=== PATIENT | male | born 1955 | race Caucasian/White ===

== ENCOUNTER → 2016-05-10 | Outpatient (CLI) | payer MEDICAID ==
[~2016-05-10] MED LIST: AMLO10TA; LOPR50TA; No Historical Meds
--- NOTE | 2016-05-10 13:03 | REP ---
CT study of the abdomen and pelvis without IV or oral contrast: History: Kidney calculus. Comparison CT study is from June 02, 2015. Previous studies have shown polycystic kidney disease. The patient is status post right renal transplant. 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 The lung bases show minimal pleuroparenchymal fibrosis. There are innumerable hepatic cysts distributed throughout the liver ranging in size up to 3.6 cm. These are unchanged. The [place] kidneys are bilaterally enlarged and replaced by innumerable cysts as well. There are multifocal cyst wall calcifications seen. There is a calcific density at the renal medullary level in the right kidney. I cannot exclude intrarenal nephrolithiasis. No hydronephrosis is seen in either [place] kidney. The right renal transplant shows no hydronephrosis. No calculus is seen within the transplanted kidney. There is no evidence of ascites. The gallbladder and the pancreas are unremarkable. No adrenal lesion is seen on either side. Spleen is unremarkable. Small and large intestinal bowel loops are normal in appearance. Urinary bladder, prostate and seminal vesicles are intact. Bone window settings show no bony destructive lesion. Impression: Polycystic kidney disease. Right renal transplant. Question right [place] kidney intrarenal nephrolithiasis. No hydronephrosis. No acute abnormality noted. Signed by Silvino Calle MD 05/10/2016 03:21 P
== END ==
LOC: M RAD 11:01
PROVIDERS: ATTEND Internal Medicine Nephrology
DX: Q61.3 Polycystic kidney, unspecified (principal); Z94.0 Kidney transplant status

== ENCOUNTER → 2016-09-15 | Outpatient (REF) | payer MEDICAID, OTHER ==
[2016-09-15 13:41] LABS: MICROSCOPIC INDICATED? MAN YES (NO)
[2016-09-15 13:42] LABS: BACTERIA, URINE MOD AMOUNT; HYALINE CAST, URINE NONE SEEN /lpf (0-1); MICROSCOPIC EXAM PERFORMED; RBC, URINE TNTC /hpf (0-3); SQUAMOUS EPITHELIAL CELL URINE NONE SEEN /hpf (SMALL AMT)
== END ==
LOC: M LAB REF 12:38
PROVIDERS: ATTEND Internal Medicine Medical Oncology
DX: D75.1 Secondary polycythemia (principal)

== ENCOUNTER → 2017-02-03 | Outpatient (REF) | payer OTHER | LOC: M SFHCPLAZ 14:05 | PROVIDERS: ATTEND Physician Assistant Medical | DX: Z12.5 Encounter for screening for malignant neoplasm of prostate (principal) ==

== ENCOUNTER → 2017-08-01 | Outpatient (REF) | payer OTHER ==
[2017-08-01 16:19] LABS: TOTAL 25(OH) VITAMIN D 26.4 NG/ML (30.0-100.0)
[2017-08-01 16:33] LABS: ALBUMIN 3.8 GM/DL (3.2-5.2); ALBUMIN/GLOBULIN RATIO 0.95 (1.00-1.93); ALKALINE PHOSPHATASE 86 U/L (45-117); ALT/SGPT 15 U/L (12-78); ANION GAP 6 MEQ/L (8-16); AST/SGOT 19 U/L (7-37); BILIRUBIN,TOTAL 0.5 MG/DL (0.2-1.0); BLOOD UREA NITROGEN 22 MG/DL (7-18); C REACTIVE PROTEIN QUANTITATIV < 0.30 MG/DL (0.00-0.30); CALCIUM LEVEL 8.7 MG/DL (8.8-10.2); CARBON DIOXIDE LEVEL 24 MEQ/L (21-32); CHLORIDE LEVEL 110 MEQ/L (98-107); CHOLESTEROL LEVEL 178 MG/DL (<200); CHOLESTEROL RISK RATIO 3.708 (<5); CPK CREATINE PHOSPHOKINASE 118 U/L (39-308); FREE T4 0.85 NG/DL (0.76-1.46); GLOMERULAR FILTRATION RATE > 60.0 (>49); GLUCOSE, FASTING 82 MG/DL (70-100); HDL CHOLESTEROL 48 MG/DL (>40); LDL CHOLESTEROL 105.8 MG/DL (<100); NON-HDL-C 130 MG/DL; POTASSIUM SERUM 4.6 MEQ/L (3.5-5.1); SODIUM LEVEL 140 MEQ/L (136-145); THYROID STIMULATING HORMONE 0.904 uIU/ML (0.358-3.740); TOTAL PROTEIN 7.8 GM/DL (6.4-8.2); TRIGLYCERIDES LEVEL 121 MG/DL (<150)
== END ==
LOC: M SFHCPLAZ 12:09
DX: E78.2 Mixed hyperlipidemia (principal); Z12.5 Encounter for screening for malignant neoplasm of prostate; Q61.3 Polycystic kidney, unspecified
CPT/HCPCS: 82550

== ENCOUNTER → 2018-01-16 | Outpatient (REF) | payer OTHER ==
[2018-01-16 18:37] LABS: CHOLESTEROL LEVEL 187 MG/DL (<200); CHOLESTEROL RISK RATIO 3.339 (<5); HDL CHOLESTEROL 56 MG/DL (>40); LDL CHOLESTEROL 111 MG/DL (<100); NON-HDL-C 131 MG/DL; TRIGLYCERIDES LEVEL 98 MG/DL (<150)
[2018-01-19 14:13] LABS: FK 506 (TACROLIMUS) LABCORP 3.3 ng/mL (2.0-20.0)
== END ==
LOC: M LAB REF 17:19
DX: Z48.22 Encounter for aftercare following kidney transplant (principal); Z94.0 Kidney transplant status; E78.2 Mixed hyperlipidemia
CPT/HCPCS: 80061

== ENCOUNTER 2018-02-06 07:38 | Day surgery (SDC) | payer OTHER ==
[~2018-02-06 07:38] MED LIST changes: +ACETYLCYSTEINE 20% 30 ML VIAL As Ordered; -AMLO10TA; -LOPR50TA; -No Historical Meds
[2018-02-06] MEDS: NS 1,000 ML IV (08:15)
[2018-02-06] MEDS ORDERED: PROPOFOL 200 MG/20 ML VIAL As Ordered (09:10)
== END 2018-02-06 09:34 | disposition home or self-care (01) ==
LOC: M OPP 07:38
DX: Z12.11 Encounter for screening for malignant neoplasm of colon (principal); K57.30 Diverticulosis of large intestine without perforation or abscess without bleeding; K64.8 Other hemorrhoids
CPT/HCPCS: 45378

== ENCOUNTER → 2018-07-25 | Outpatient (REF) | payer MEDICARE ==
[~2018-07-25] MED LIST changes: -ACETYLCYSTEINE 20% 30 ML VIAL As Ordered; +AMLO10TA; +AMLO10TA5 PO; +ASPI-255 PO; +CALC1CAP31 PO; +LOPR50TA; +LOSA100T50 PO; +METO1TAB87 PO; +MYCO250C PO; +No Historical Meds; +PRAV10TA3 PO; +TACR1CAP3 PO
[2018-07-25 12:19] LABS: BASO # 0.1 10^3/uL (0.0-0.2); BASO % 0.8 % (0.0-1.0); EOS # 0.3 10^3/uL (0.0-0.50); EOS % 3.6 % (0.0-3.0); HEMATOCRIT 55.8 % (42.0-52.0); LYMPH # 1.4 10^3/uL (1.5-4.5); LYMPH % 16.5 % (24.0-44.0); MEAN CORPUSCULAR HEMOGLOBIN 29.6 pg (27.0-33.0); MEAN CORPUSCULAR HGB CONC 32.3 g/dl (32.0-36.5); MEAN CORPUSCULAR VOLUME 91.6 fl (80.0-96.0); MONO # 0.9 10^3/uL (0.0-0.8); MONO % 10.1 % (0.0-5.0); NEUTROPHILS # 5.9 10^3/uL (1.8-7.7); NEUTROPHILS % 68.8 % (36.0-66.0); PLATELET COUNT, AUTOMATED 187 10^3/uL (150-450); RED BLOOD COUNT 6.09 10^6/uL (4.30-6.10); WHITE BLOOD COUNT 8.6 10^3/uL (4.0-10.0)
[2018-07-25 12:51] LABS: ALBUMIN 3.6 GM/DL (3.2-5.2); ALT/SGPT 15 U/L (12-78); BILIRUBIN,TOTAL 0.6 MG/DL (0.2-1.0); BLOOD UREA NITROGEN 19 MG/DL (7-18); C REACTIVE PROTEIN QUANTITATIV 0.66 MG/DL (0.00-0.30); CALCIUM LEVEL 9.1 MG/DL (8.8-10.2); CARBON DIOXIDE LEVEL 27 MEQ/L (21-32); CHLORIDE LEVEL 106 MEQ/L (98-107); CHOLESTEROL LEVEL 184 MG/DL (<200); CHOLESTEROL RISK RATIO 3.471 (<5); CPK CREATINE PHOSPHOKINASE 113 U/L (39-308); CREATININE FOR GFR 1.18 MG/DL (0.70-1.30); GLOMERULAR FILTRATION RATE > 60.0 (>49); GLUCOSE, FASTING 85 MG/DL (70-100); HDL CHOLESTEROL 53 MG/DL (>40); LDL CHOLESTEROL 109 MG/DL (<100); NON-HDL-C 131 MG/DL; POTASSIUM SERUM 4.9 MEQ/L (3.5-5.1); SODIUM LEVEL 139 MEQ/L (136-145); TRIGLYCERIDES LEVEL 110 MG/DL (<150)
== END ==
LOC: M SFHCPLAZ 09:40
PROVIDERS: ATTEND Physician Assistant Medical
DX: Q61.3 Polycystic kidney, unspecified (principal); E78.2 Mixed hyperlipidemia; I10 Essential (primary) hypertension; Z12.5 Encounter for screening for malignant neoplasm of prostate
CPT/HCPCS: 36415; 80053; 80061; 82550; 82747; 85025; 86140; 90670; G0009; G0103; G0463

== ENCOUNTER → 2019-06-25 | Outpatient (REF) | payer MEDICARE, MEDICAID | LOC: M LAB REF 17:30 | PROVIDERS: ATTEND Internal Medicine Nephrology | DX: Z94.0 Kidney transplant status (principal); Z48.22 Encounter for aftercare following kidney transplant ==

== ENCOUNTER → 2019-07-03 | Outpatient (REF) | payer MEDICARE ==
[2019-07-03 14:46] LABS: BASO # 0.1 10^3/uL (0.0-0.2); BASO % 0.8 % (0.0-1.0); EOS # 0.2 10^3/uL (0.0-0.5); EOS % 3.3 % (0.0-3.0); LYMPH # 1.7 10^3/uL (1.5-5.0); LYMPH % 27.1 % (24.0-44.0); MEAN CORPUSCULAR HEMOGLOBIN 30.3 pg (27.0-33.0); MEAN CORPUSCULAR HGB CONC 33.2 g/dl (32.0-36.5); MONO # 0.7 10^3/uL (0.0-0.8); MONO % 11.7 % (0.0-5.0); NEUTROPHILS # 3.5 10^3/uL (1.5-8.5); NEUTROPHILS % 56.8 % (36.0-66.0); PLATELET COUNT, AUTOMATED 209 10^3/uL (150-450); WHITE BLOOD COUNT 6.1 10^3/uL (4.0-10.0)
[2019-07-03 14:50] LABS: HEMOGLOBIN 18.6 g/dl (13.5-17.5); MEAN CORPUSCULAR VOLUME 91.2 fl (80.0-96.0); RED BLOOD COUNT 6.14 10^6/uL (4.30-6.10)
[2019-07-03 15:21] LABS: ALT/SGPT 23 U/L (12-78); BILIRUBIN,TOTAL 0.6 MG/DL (0.2-1.0); BLOOD UREA NITROGEN 22 MG/DL (7-18); CALCIUM LEVEL 9.3 MG/DL (8.8-10.2); CARBON DIOXIDE LEVEL 27 MEQ/L (21-32); CHLORIDE LEVEL 106 MEQ/L (98-107); CHOLESTEROL LEVEL 176 MG/DL (<200); CHOLESTEROL RISK RATIO 3.259 (<5); CPK CREATINE PHOSPHOKINASE 126 U/L (39-308); CREATININE FOR GFR 1.21 MG/DL (0.70-1.30); FREE T4 1.07 NG/DL (0.76-1.46); GLOMERULAR FILTRATION RATE > 60.0 (>49); GLUCOSE, FASTING 80 MG/DL (70-100); HDL CHOLESTEROL 54 MG/DL (>40); LDL CHOLESTEROL 96 MG/DL (<100); NON-HDL-C 122 MG/DL; SODIUM LEVEL 137 MEQ/L (136-145); TOTAL PROTEIN 8.1 GM/DL (6.4-8.2); TRIGLYCERIDES LEVEL 132 MG/DL (<150)
== END ==
LOC: M SFHCPLAZ 12:20
PROVIDERS: ATTEND Physician Assistant Medical
DX: E78.2 Mixed hyperlipidemia (principal); I10 Essential (primary) hypertension; Z12.5 Encounter for screening for malignant neoplasm of prostate
CPT/HCPCS: 36415; 80053; 80061; 82550; 84439; 84443; 85025; G0103

== ENCOUNTER → 2020-01-02 | Outpatient (REF) | payer MEDICARE ==
[~2020-01-02] MED LIST changes: -AMLO10TA5 PO; +AMLO1TAB25 PO
[2020-01-02 13:23] LABS: BASO % 0.5 % (0.0-1.0); EOS # 0.2 10^3/uL (0.0-0.5); EOS % 2.7 % (0.0-3.0); HEMATOCRIT 55.4 % (42.0-52.0); HEMOGLOBIN 17.7 g/dl (13.5-17.5); LYMPH # 1.4 10^3/uL (1.5-5.0); LYMPH % 19.5 % (24.0-44.0); MEAN CORPUSCULAR HEMOGLOBIN 30.5 pg (27.0-33.0); MEAN CORPUSCULAR HGB CONC 31.9 g/dl (32.0-36.5); MEAN CORPUSCULAR VOLUME 95.4 fl (80.0-96.0); MONO % 14.1 % (0.0-5.0); NEUTROPHILS # 4.6 10^3/uL (1.5-8.5); NEUTROPHILS % 62.9 % (36.0-66.0); PLATELET COUNT, AUTOMATED 197 10^3/uL (150-450); RED BLOOD COUNT 5.81 10^6/uL (4.30-6.10); WHITE BLOOD COUNT 7.3 10^3/uL (4.0-10.0)
[2020-01-02 13:39] LABS: HEMOGLOBIN A1c 5.2 %
[2020-01-02 13:54] LABS: BILIRUBIN,TOTAL 0.7 MG/DL (0.2-1.0); CALCIUM LEVEL 9.5 MG/DL (8.8-10.2); CREATININE FOR GFR 1.51 MG/DL (0.70-1.30); GLOMERULAR FILTRATION RATE 49.5 (>49); POTASSIUM SERUM 4.8 MEQ/L (3.5-5.1); TOTAL PROTEIN 7.9 GM/DL (6.4-8.2); URIC ACID 8.2 MG/DL (3.5-7.2)
[2020-01-02 14:01] LABS: PTH INTACT 93.9 PG/ML (18.5-88.0)
[2020-01-03 09:09] LABS: ERYTHROPOIETIN 18.1 mIU/mL (2.6-18.5); INSULIN LEVEL 9.2 uIU/mL (2.6-24.9)
== END ==
LOC: M SFHCPLAZ 09:55
PROVIDERS: ATTEND Family Medicine
DX: D75.1 Secondary polycythemia (principal); I10 Essential (primary) hypertension; Z79.899 Other long term (current) drug therapy; Z23 Encounter for immunization
CPT/HCPCS: 36415; 80053; 82668; 82728; 83036; 83525; 83550; 83970; 84550; 85025; 90682; G0008; G0463

== ENCOUNTER → 2020-01-17 | Outpatient (CLI) | payer MEDICARE, MEDICAID ==
--- NOTE | 2020-01-21 09:36 | SLEEPHOME ---
DATE: 01/17/2020 ORDERED BY: Dr. Tapia Diagnostic home sleep testing was performed due to concern for the obstructive sleep apnea syndrome. For testing, a nocturnal T3 respiratory monitoring device was used. Continuous record was made of pulse, oxygen saturation, air flow, chest and abdominal strain, and body position. Nine hours and 59 minutes of data were reviewed. There were 8 hours and 12 minutes marked as time in bed. During the interval marked time in bed, there were 117 respiratory events identified of 10 seconds in duration or greater for a respiratory event index of 14.3. The events were primarily obstructive. Baseline pulse rate was 56. Pulse rate ranged 45-88. Baseline saturation was 90%. Saturations fell to 83%. Testing was performed in both the supine and nonsupine positions. IMPRESSION: Abnormal home sleep testing with repetitive respiratory events and oxygen desaturations to 83% with a respiratory event index of 14.3 is consistent with the obstructive sleep apnea syndrome. RECOMMENDATION: The patient should be encouraged to undergo a formal sleep evaluation. [facility]
== END ==
LOC: M SLEEP HO 10:29
PROVIDERS: ATTEND Family Medicine
DX: D75.1 Secondary polycythemia (principal); G47.33 Obstructive sleep apnea (adult) (pediatric)

== ENCOUNTER → 2020-06-19 | Outpatient (REF) | payer MEDICARE, MEDICAID ==
[~2020-06-19] MED LIST changes: +CELL500T PO; +COVI100V IM; +OMEP40CA97 PO; +TORS10TA3 PO
[2020-06-19 13:10] LABS: BASO # 0.1 10^3/uL (0.0-0.2); EOS # 0.3 10^3/uL (0.0-0.5); EOS % 5.4 % (0.0-3.0); HEMOGLOBIN 18.2 g/dl (13.5-17.5); LYMPH # 1.2 10^3/uL (1.5-5.0); LYMPH % 18.8 % (24.0-44.0); MEAN CORPUSCULAR HGB CONC 31.9 g/dl (32.0-36.5); MEAN CORPUSCULAR VOLUME 93.9 fl (80.0-96.0); MONO # 0.7 10^3/uL (0.0-0.8); MONO % 11.6 % (2.0-8.0); NEUTROPHILS # 3.9 10^3/uL (1.5-8.5); NEUTROPHILS % 62.9 % (36.0-66.0); PLATELET COUNT, AUTOMATED 197 10^3/uL (150-450); RED BLOOD COUNT 6.07 10^6/uL (4.30-6.10); WHITE BLOOD COUNT 6.1 10^3/uL (4.0-10.0)
[2020-06-19 14:03] LABS: ALBUMIN 3.9 GM/DL (3.2-5.2); BILIRUBIN,TOTAL 0.7 MG/DL (0.2-1.0); CALCIUM LEVEL 10.2 MG/DL (8.8-10.2); CREATININE FOR GFR 1.32 MG/DL (0.70-1.30); FREE T4 1.01 NG/DL (0.76-1.46); GLOMERULAR FILTRATION RATE 57.6 (>49); POTASSIUM SERUM 4.6 MEQ/L (3.5-5.1); THYROID STIMULATING HORMONE 1.66 uIU/ML (0.358-3.740); TOTAL PROTEIN 7.8 GM/DL (6.4-8.2)
== END ==
LOC: M SFHCPLAZ 10:34
PROVIDERS: ATTEND Physician Assistant Medical
DX: E78.2 Mixed hyperlipidemia (principal); I10 Essential (primary) hypertension; Z12.5 Encounter for screening for malignant neoplasm of prostate
CPT/HCPCS: 36415; 80053; 80061; 84439; 84443; 85025; G0103; G0463

== ENCOUNTER → 2020-07-06 | Outpatient (CLI) | payer MEDICARE, MEDICAID ==
[~2020-07-06] MED LIST changes: -CELL500T PO; -COVI100V IM; -OMEP40CA97 PO; -TORS10TA3 PO
--- NOTE | 2020-07-06 14:43 | REPPI ---
INDICATION: SLEEP APNEA. COMPARISON: 05/15/2012 FINDINGS: The superior mediastinal structures are midline. The cardiac silhouette is unremarkable in size, shape, and position. The diaphragmatic surfaces of the lungs are regular, and the costophrenic angles are clear. The pulmonary johns are clear. The imaged osseous structures are intact. IMPRESSION: There is no acute cardiopulmonary disease. <Electronically signed by Ander Orellana > 07/06/20 [id number]
== END ==
LOC: M PLAIMG 13:11
PROVIDERS: ATTEND Nurse Practitioner Family
DX: G47.33 Obstructive sleep apnea (adult) (pediatric) (principal)

== ENCOUNTER 2020-07-09 11:18 | Outpatient (CLI) | payer MEDICARE, MEDICAID ==
[~2020-07-09] VITALS: Ht 175.3 cm; Wt 68.9 kg
[2020-07-09 12:03] LABS: HEMATOCRIT 58.5 % (42.0-52.0); MEAN CORPUSCULAR HEMOGLOBIN 29.9 pg (27.0-33.0); MEAN CORPUSCULAR HGB CONC 32.3 g/dl (32.0-36.5); MEAN CORPUSCULAR VOLUME 92.4 fl (80.0-96.0); PLATELET COUNT, AUTOMATED 202 10^3/uL (150-450); RED BLOOD COUNT 6.33 10^6/uL (4.30-6.10)
[2020-07-09 12:11] LABS: HEMOGLOBIN 18.9 g/dl (13.5-17.5)
[2020-07-09 12:34] VITALS: BP 132/80
[2020-07-09 12:37] LABS: PERCENT SATURATION 30.3 % (19.7-50.0)
[2020-07-09 13:06] VITALS: BP 118/68
[2020-07-10] MEDS ORDERED: TORS10TA3 PO (11:45)
[2020-07-10] MEDS ORDERED: CELL500T PO ×2 (11:45)
[2020-07-10] MEDS ORDERED: COVI100V IM (11:54)
[2020-07-10] MEDS ORDERED: OMEP40CA97 PO (11:54)
== END 2020-07-09 13:05 | disposition home or self-care (01) ==
LOC: M INFU 11:18
PROVIDERS: ATTEND Physician Assistant Medical
DX: D75.1 Secondary polycythemia (principal)

== ENCOUNTER → 2020-07-12 | Outpatient (CLI) | payer MEDICARE, MEDICAID ==
[~2020-07-12] MED LIST changes: +CELL500T PO; +COVI100V IM; +OMEP40CA97 PO; +TORS10TA3 PO
--- NOTE | 2020-07-13 17:10 | SLEEPCENT ---
NOCTURNAL POLYSOMNOGRAPHY DATE: 07/12/2020 ORDERED BY: RAJESH Mendez Nocturnal polysomnography was performed for evaluation of sleep physiology in this patient suspect of having the obstructive sleep apnea syndrome. 7 hours and 10 minutes of data were reviewed. There were 213.5 minutes of sleep identified. Sleep latency was prolonged at 21 minutes. REM latency was prolonged at 256.5 minutes. Sleep architecture showed severe fragmentation. One brief REM episode was noted. Overall sleep efficiency was 50.2%. The electrocardiogram showed very small complexes what appeared to be a sinus rhythm with PVCs. Average heart rate was 60 beats per minute. EEG showed normal waveforms for wake and sleep. There were 192 respiratory events identified of 10 seconds in duration or greater for an apnea-hypopnea index of 54. The events were primarily obstructive; however, 139 central and mixed apneas were also seen. Events were not exclusive to sleep stage nor body posture. Arousals from respiratory events occurred 41.6 times per hour and oxygen desaturations were seen into the 80s. IMPRESSION: Complex sleep apnea syndrome (G47.31, G47.33), apnea-hypopnea index 54. RECOMMENDATION: The patient should be encouraged to return to [facility]. Given the frequency of central events (139 of 192), the use of a BiLevel device and backup rate may be necessary. Johnny Tapia M.D.
== END ==
LOC: M SLEEP 20:00
PROVIDERS: ATTEND Nurse Practitioner Family
DX: G47.33 Obstructive sleep apnea (adult) (pediatric) (principal)

== ENCOUNTER → 2020-07-28 | Outpatient (CLI) | payer MEDICARE, MEDICAID ==
--- NOTE | 2020-07-28 11:01 | PFTRPT ---
Height: 69.50 Inches Weight: 168.00 Lbs BSA: 1.93 Diagnosis: G47.33 DATE: 07/28/2020 ORDERING PHYSICIAN: ISABELLA Mendez Pre and post bronchodilator studies have excellent technical quality. Forced vital capacity is reduced. FEV1 is out of proportion. Obstructive index is therefore reduced. Expiratory limit of the flow-volume loop suggestive of flow rate limitation. No significant bronchodilator response is identified. Total lung capacity is normal. Residual volume suggests significant air trapping. Diffusing capacity is reduced but does correct for alveolar volume. Hemoglobin is acceptable at 16.8. IMPRESSION: Mild obstructive ventilatory impairment with underlying air trapping. No bronchodilator response. Please correlate clinically. [facility]
== END ==
LOC: M CARPUL 10:17
PROVIDERS: ATTEND Nurse Practitioner Family
DX: G47.33 Obstructive sleep apnea (adult) (pediatric) (principal)

== ENCOUNTER 2020-07-30 11:04 | Outpatient (CLI) | payer MEDICARE, MEDICAID ==
[~2020-07-30] VITALS: Ht 175.3 cm; Wt 68.9 kg
[2020-07-30 12:05] LABS: BASO # 0.1 10^3/uL (0.0-0.2); EOS # 0.4 10^3/uL (0.0-0.5); HEMATOCRIT 54.8 % (42.0-52.0); HEMOGLOBIN 17.8 g/dl (13.5-17.5); LYMPH # 1.3 10^3/uL (1.5-5.0); LYMPH % 21.1 % (24.0-44.0); MEAN CORPUSCULAR HEMOGLOBIN 30.1 pg (27.0-33.0); MEAN CORPUSCULAR HGB CONC 32.5 g/dl (32.0-36.5); MEAN CORPUSCULAR VOLUME 92.6 fl (80.0-96.0); MONO # 0.6 10^3/uL (0.0-0.8); MONO % 10.3 % (2.0-8.0); NEUTROPHILS # 3.7 10^3/uL (1.5-8.5); NEUTROPHILS % 60.1 % (36.0-66.0); PLATELET COUNT, AUTOMATED 195 10^3/uL (150-450); RED BLOOD COUNT 5.92 10^6/uL (4.30-6.10); WHITE BLOOD COUNT 6.1 10^3/uL (4.0-10.0)
[2020-07-30 12:13] VITALS: BP 126/68
[2020-07-30 12:30] VITALS: BP 115/70
[2020-07-30 12:35] LABS: FERRITIN 516 NG/ML (26-388); IRON (FE) 96 UG/DL (65-175)
== END 2020-07-30 12:30 | disposition home or self-care (01) ==
LOC: M INFU 11:04
PROVIDERS: ATTEND Physician Assistant Medical
DX: D75.1 Secondary polycythemia (principal)

== ENCOUNTER → 2020-08-26 | Outpatient (CLI) | payer MEDICARE, MEDICAID ==
[~2020-08-26] MED LIST changes: +OMEP40CA4 PO; -OMEP40CA97 PO
== END ==
LOC: M SLEEP 20:00
PROVIDERS: ATTEND Nurse Practitioner Family
DX: G47.33 Obstructive sleep apnea (adult) (pediatric) (principal)

== ENCOUNTER → 2020-09-04 | Outpatient (CLI) | payer MEDICARE, MEDICAID ==
--- NOTE | 2020-09-04 09:42 | REP ---
INDICATION: ABN PFT COMPARISON: None TECHNIQUE: Axial noncontrast images from the thoracic inlet to the upper abdomen with coronal and sagittal reformations. This CT examination was performed using the following dose reduction techniques: Automated exposure control, adjustment of mA and/or kv according to the patient's size, and use of iterative reconstruction technique. FINDINGS: Lung johns are well aerated and there is suggestion for mild early emphysematous change along with mild perihilar and primarily lower lobe bronchiectasis with subtle acute versus chronic ground-glass opacities. No discrete focal consolidation or evidence for chronic interstitial disease. No effusion. No pneumothorax. No adenopathy. Atherosclerotic changes to the thoracic aorta and coronary arteries noted without aortic aneurysm or cardiomegaly. No pericardial effusion. Surrounding musculoskeletal structures intact and without acute osseous abnormality. Limited upper abdomen demonstrates normal bilateral adrenal glands and evidence for polycystic kidney disease including innumerable renal and hepatic cysts. IMPRESSION: 1. Findings suggesting very mild early emphysematous change along with mild perihilar and primarily lower lobe bronchiectasis. 2. Upper abdomen suggesting polycystic kidney disease. <Electronically signed by Shaji Zhao > 09/04/20 [id number]
== END ==
LOC: M RAD 08:48
PROVIDERS: ATTEND Nurse Practitioner Family
DX: R94.2 Abnormal results of pulmonary function studies (principal)

== ENCOUNTER → 2021-05-13 | Outpatient (CLI) | payer MEDICARE, MEDICAID ==
[~2021-05-13] MED LIST changes: +ALBU8.5H; +ARNU1INH; +LOSA100T45 PO; -LOSA100T50 PO
[2021-05-13 13:48] LABS: BASO # 0.1 10^3/uL (0.0-0.2); BASO % 0.8 % (0.0-1.0); EOS # 0.2 10^3/uL (0.0-0.5); EOS % 3.1 % (0.0-3.0); HEMATOCRIT 54.5 % (42.0-52.0); HEMOGLOBIN 17.3 g/dl (13.5-17.5); LYMPH # 1.1 10^3/uL (1.5-5.0); LYMPH % 17.9 % (24.0-44.0); MEAN CORPUSCULAR HEMOGLOBIN 29.3 pg (27.0-33.0); MEAN CORPUSCULAR HGB CONC 31.7 g/dl (32.0-36.5); MEAN CORPUSCULAR VOLUME 92.4 fl (80.0-96.0); MONO # 0.7 10^3/uL (0.0-0.8); MONO % 11.3 % (2.0-8.0); NEUTROPHILS # 4.1 10^3/uL (1.5-8.5); NEUTROPHILS % 66.7 % (36.0-66.0); PLATELET COUNT, AUTOMATED 200 10^3/uL (150-450); WHITE BLOOD COUNT 6.2 10^3/uL (4.0-10.0)
[2021-05-13 14:14] LABS: ALBUMIN 3.9 GM/DL (3.2-5.2); BILIRUBIN,TOTAL 0.6 MG/DL (0.2-1.0); C REACTIVE PROTEIN QUANTITATIV 0.3 MG/DL (0.00-0.30); CALCIUM LEVEL 9.6 MG/DL (8.8-10.2); CHOLESTEROL RISK RATIO 4.571 (<5); CREATININE FOR GFR 1.49 MG/DL (0.70-1.30); GLOMERULAR FILTRATION RATE 49.9 (>49); PERCENT SATURATION 28.6 % (19.7-50.0); TOTAL PROTEIN 7.9 GM/DL (6.4-8.2)
[2021-05-13 14:23] LABS: PTH INTACT 131.1 PG/ML (18.5-88.0)
== END ==
LOC: M PLALAB 10:03
PROVIDERS: ATTEND Family Medicine
DX: E78.2 Mixed hyperlipidemia (principal); E21.3 Hyperparathyroidism, unspecified; D75.1 Secondary polycythemia; Z12.5 Encounter for screening for malignant neoplasm of prostate
CPT/HCPCS: 36415; 80053; 80061; 82550; 82607; 82728; 83550; 83970; 85025; 86140; G0103

== ENCOUNTER → 2023-03-07 | Outpatient (REF) | payer MEDICARE, MEDICAID ==
[~2023-03-07] MED LIST changes: -LOSA100T45 PO; +LOSA100T46 PO; +PROG1CAP11 PO
== END ==
LOC: M LAB REF 17:20
PROVIDERS: ATTEND Nurse Practitioner Family
DX: Z94.0 Kidney transplant status (principal)

== ENCOUNTER → 2023-03-30 | Outpatient (CLI) | payer MEDICARE, MEDICAID ==
[2023-03-30 16:32] LABS: PSA SCREENING 1.4 NG/ML (< 4.00)
[2023-03-30 16:33] LABS: URIC ACID 9.5 MG/DL (3.7-9.2)
[2023-03-30 16:36] LABS: CHOLESTEROL RISK RATIO 3.66 (<5); HDL CHOLESTEROL 51.6 MG/DL (>40); LDL CHOLESTEROL 113.2 MG/DL (<100); NON-HDL-C 137.4 MG/DL; PERCENT SATURATION 20.3 % (19.7-50.0)
[2023-03-30 16:37] LABS: FERRITIN 179.9 NG/ML (10.5-307.3); FREE T4 1.14 NG/DL (0.89-1.76)
[2023-03-30 16:46] LABS: THYROID STIMULATING HORMONE 0.987 uIU/ML (0.55-4.78)
[2023-03-30 16:51] LABS: HEMOGLOBIN A1c 5.1 % (4.0-6.0)
== END ==
LOC: M PLALAB 12:01
PROVIDERS: ATTEND Physician Assistant Medical
DX: D75.1 Secondary polycythemia (principal); E78.2 Mixed hyperlipidemia; Z12.5 Encounter for screening for malignant neoplasm of prostate; I10 Essential (primary) hypertension; R73.01 Impaired fasting glucose; M10.9 Gout, unspecified; Z86.39 Personal history of other endocrine, nutritional and metabolic disease
CPT/HCPCS: 36415; 80061; 82607; 82728; 83036; 83525; 83550; 84439; 84443; 84550; G0103

== ENCOUNTER → 2023-07-06 | Outpatient (REF) | payer MEDICARE, MEDICAID | LOC: M LAB REF 17:28 | PROVIDERS: ATTEND Nurse Practitioner Family | DX: Z94.0 Kidney transplant status (principal) ==

== ENCOUNTER → 2023-10-10 | Outpatient (REF) | payer MEDICARE, MEDICAID ==
[~2023-10-10] MED LIST changes: +ALLO100T; +BREO1INH3
== END ==
LOC: M LAB REF 17:23
PROVIDERS: ATTEND Nurse Practitioner Family
DX: Z94.0 Kidney transplant status (principal)

== ENCOUNTER → 2023-12-04 | Outpatient (CLI) | payer MEDICARE, MEDICAID ==
[~2023-12-04] MED LIST changes: -BREO1INH3; +BREO1INH3 INH; +FEBU40TA4 PO
[2023-12-04 13:01] LABS: ALBUMIN 3.9 G/DL (3.2-5.2); BILIRUBIN,TOTAL 0.7 MG/DL (0.3-1.2); CREATININE FOR GFR 1.61 MG/DL (0.70-1.30); GLOMERULAR FILTRATION RATE 45.4 (>42); TOTAL PROTEIN 7.5 G/DL (5.7-8.2)
== END ==
LOC: M PLALAB 09:16
PROVIDERS: ATTEND Physician Assistant Medical
DX: E78.2 Mixed hyperlipidemia (principal)

== ENCOUNTER → 2024-02-09 | Outpatient (REF) | payer MEDICARE, MEDICAID | LOC: M LAB REF 17:34 | PROVIDERS: ATTEND Nurse Practitioner Family | DX: Z94.0 Kidney transplant status (principal) ==

== ENCOUNTER → 2024-02-21 | Outpatient (REF) | payer MEDICARE, MEDICAID | LOC: M LAB REF 17:03 | PROVIDERS: ATTEND Nurse Practitioner Family | DX: Z94.0 Kidney transplant status (principal) ==

== ENCOUNTER → 2024-06-25 | Outpatient (REF) | payer MEDICARE, MEDICAID | LOC: M LAB REF 17:10 | PROVIDERS: ATTEND Nurse Practitioner Family | DX: Z94.0 Kidney transplant status (principal) ==

== ENCOUNTER → 2024-10-23 | Outpatient (REF) | payer MEDICARE, MEDICAID ==
[~2024-10-23] MED LIST changes: -PRAV10TA3 PO; +PRAV10TA43 PO; +TACR0.5C3 PO
== END ==
LOC: M LAB REF 17:17
PROVIDERS: ATTEND Nurse Practitioner Family
DX: Z94.0 Kidney transplant status (principal)

== ENCOUNTER → 2025-02-21 | Outpatient (REF) | payer MEDICARE, MEDICAID | LOC: M LAB REF 16:46 | PROVIDERS: ATTEND Nurse Practitioner Family | DX: Z94.0 Kidney transplant status (principal) ==